=== PATIENT | male | born 1965 | race Caucasian/White ===

== ENCOUNTER 2018-10-26 09:05 | Emergency (ER) | payer OTHER ==
[2018-10-26 09:21] VITALS: BP 164/91
--- NOTE | 2018-10-26 12:40 | ED ---
Upper Extremity Pain - HPI Summary HPI Summary: Patient is a 52-year-old male who presents to the ED with left shoulder pain after attempting to pick something up yesterday. He states he is having pain to the most anterior portion of the shoulder without any pain to the superior portion. He arrives stating "I feel like a trauma biceps tendon." He endorses a history of calcific tendinitis, however denies any other injuries to the shoulder. He denies a history of biceps tendon tear. He states since arrival, his symptoms have improved. He denies any limitations with range of motion. He denies any other injuries. He has not taken any medication prior to arrival. - History of Current Complaint Chief Complaint: EDExtremityUpper Stated Complaint: I THINK I DETACHED MY BICEP PER PT Time Seen by Provider: 10/26/18 09:12 Hx Obtained From: Patient Onset/Duration: Started Hours Ago Timing: Constant Severity Initially: Moderate Severity Currently: Moderate Pain Location: Shoulder Character: Aching Aggravating Factor(s): Movement, Lifting Alleviating Factor(s): Ice Associated Signs & Symptoms: Negative: Swelling, Redness, Bruising, Weakness, Numbness/Tingling Related History: Dominant Hand Right - Risk Factors Non-Orthopedic Risk Factor: Negative DVT Risk Factors: Negative Septic Arthritis Risk Factor: Negative Compartment Syndrome Risk Factors: Pain - Allergies/Home Medications Allergies/Adverse Reactions: Allergies Allergy/AdvReac Type Severity Reaction Status Date / Time No Known Allergies Allergy Verified 11/22/13 13:21 PMH/Surg Hx/FS Hx/Imm Hx Previously Healthy: Yes Sensory History: Reports: Hx Contacts or Glasses - glasses on Opthamlomology History: Reports: Hx Contacts or Glasses - glasses on - Immunization History Hx Pertussis Vaccination: No Immunizations Up to Date: Yes Infectious Disease History: No Infectious Disease History: Denies: Traveled Outside the [place] in Last 30 Days - Social History Occupation: Unemployed Lives: With Family Alcohol Use: Weekly Hx Substance Use: No Substance Use Type: Reports: None Hx Tobacco Use: Yes Smoking Status (MU): Heavy Every Day Tobacco Smoker Review of Systems Constitutional: Negative Eyes: Negative Respiratory: Negative Gastrointestinal: Negative Positive: Arthralgia - left shoulder pain Skin: Negative Neurological: Negative All Other Systems Reviewed And Are Negative: Yes Physical Exam Triage Information Reviewed: Yes Vital Signs On Initial Exam: Initial Vitals Temp Pulse Resp BP Pulse Ox 97.5 F 78 18 164/91 95 10/26/18 09:07 10/26/18 09:07 10/26/18 09:07 10/26/18 09:07 10/26/18 09:07 Vital Signs Reviewed: Yes Appearance: Positive: Well-Appearing Skin: Positive: Skin Color Reflects Adequate Perfusion Head/Face: Positive: Normal Head/Face Inspection Eyes: Positive: Conjunctiva Clear Neck: Positive: Supple Respiratory/Lung Sounds: Positive: Clear to Auscultation Cardiovascular: Positive: Pulses are Symmetrical in both Upper and Lower Extremities Musculoskeletal: Positive: Pain @ - anterior portion of the left shoulder Neurological: Positive: Sensory/Motor Intact, Alert, Oriented to Person Place, Time, Speech Normal Psychiatric: Positive: Affect/Mood Appropriate Diagnostics - Vital Signs Vital Signs Temp Pulse Resp BP Pulse Ox 10/26/18 09:59 97.5 F 78 18 164/91 95 10/26/18 09:07 97.5 F 78 18 164/91 95 - Laboratory Lab Statement: Any lab studies that have been ordered have been reviewed, and results considered in the medical decision making process. Course/Dx - Course Course Of Treatment: Physical examination, patient is able to abduct, adduct, flex and extend at the shoulder joint without pain. There is no evidence of a biceps tendon rupture or a triceps tendon tear. No ecchymosis or signs of trauma. No bulging. No numbness or tingling bilaterally. Pulses +2. Patient states he is feeling improved since arrival to the ED. Discussed with patient this is likely a teres minor muscle strain due to attempting to pick something heavy up from the ground. Encouraged ibuprofen and heat to the area. Patient agrees and offers no other concerns at this time. - Diagnoses Differential Diagnosis/HQI/PQRI: Positive: Fracture (Open), Fracture (Closed), Strain, Sprain Provider Diagnoses: Shoulder strain Discharge - Sign-Out/Discharge Documenting (check all that apply): Patient Departure Patient Received Moderate/Deep Sedation with Procedure: No - Discharge Plan Condition: Stable Disposition: HOME Patient Education Materials: Muscle Strain (ED) Referrals: Erika Gross PSYCH NURSE [Primary Care Provider] - Additional Instructions: Ice to the area throughout the day Heat before bed Ibuprofen 600mg three times daily x 3-4 days Gentle stretches Will heal over time slowly over the next few days - Billing Disposition and Condition Condition: STABLE Disposition: Home
== END 2018-10-26 09:59 | disposition home or self-care (01) ==
LOC: ED 09:05
DX: S46.912A Strain of unspecified muscle, fascia and tendon at shoulder and upper arm level, left arm, initial encounter (principal); F17.210 Nicotine dependence, cigarettes, uncomplicated; X50.0XXA Overexertion from strenuous movement or load, initial encounter
CPT/HCPCS: 99281